=== PATIENT | male | born 1950 | race African-American/Black ===

== ENCOUNTER → 2018-06-30 | Outpatient (REF) | payer MEDICARE, MEDICAID ==
[~2018-06-30] MED LIST: FLEXERIL PO; NAPROSYN500 MG PO; PRILOSEC40 MG PO; ZOFRAN ODT4 MG SL; ZOVIRAX400 MG PO
[2018-06-30 07:54] LABS: URINE BILIRUBIN - DIPSTICK NEGATIVE (NEGATIVE); URINE BLOOD DIPSTICK SMALL (NEGATIVE); URINE CLARITY CLEAR; URINE COLOR YELLOW; URINE GLUCOSE - DIPSTICK NEGATIVE (NEGATIVE); URINE KETONE NEGATIVE (NEGATIVE); URINE LEUK ESTERASE NEGATIVE (NEGATIVE); URINE NITRITE - DIPSTICK NEGATIVE (Negative); URINE PROTEIN - DIPSTICK NEGATIVE (NEG-TRACE); URINE SPECIFIC GRAVITY 1.015
[2018-06-30 07:57] LABS: HEMATOCRIT 35.7 % (39.0-50.0); HEMOGLOBIN 12.1 g/dl (14.0-18.0); MEAN CELL VOLUME 91.3 fL CALC (80.0-100.0); MEAN CORPUSCULAR HGB 30.9 pG CALC (26.0-32.0); MEAN CORPUSCULAR HGB CONC 33.9 g/L CALC (32.0-36.0); RED BLOOD COUNT 3.91 mill/uL (4.70-6.10)
[2018-06-30 08:11] LABS: URINE RBC 0-2 RBC/hpf (0-5); URINE WBC 0-2 WBC/hpf (0-5)
[2018-06-30 08:26] LABS: ALBUMIN 3.9 g/dL (3.2-5.0); ALKALINE PHOSPHATASE 147 u/l (38-126); ANION GAP 13 (6-22 (CALC)); BILIRUBIN, TOTAL 0.4 mg/dL (0.0-1.4); BUN 14 mg/dL (8-23); BUN/CREATININE RATIO 15 (12-20 (CALC)); CALCULATED LDLCHOLESTEROL 62 mg/dL (62-129 (CALC)); CARBON DIOXIDE 27 mmol/l (22-30); CHLORIDE 107 mmol/l (95-108); CHOLESTEROL HDL RATIO 2.2 (<4.4 (CALC)); GFR > 60 ML/MIN (>=60 (CALC)); GFR FOR AFR.AMER. > 60 ML/MIN (>=60 (CALC)); HDL CHOLESTEROL 66 mg/dL (>=40); POTASSIUM 3.7 mmol/l (3.5-5.1); SGOT/AST 38 u/l (19-48); SODIUM 144 mmol/l (137-146); TOTAL CHOLESTEROL 146 mg/dl (0-199); TOTAL PROTEIN 6.9 g/dL (6.3-8.2); TOTAL TRIGLYCERIDES 91 mg/dl (30-149); VLDL CHOLESTROL 18 mg/dl (4-45 (CALC))
[2018-06-30 08:58] LABS: TSH, 3RD GENERATION 4.33 uIU/mL (0.47 - 4.68)
== END | disposition home or self-care (01) ==
LOC: LAB 07:10
PROVIDERS: ATTEND Nurse Practitioner Adult Health
DX: C18.9 Malignant neoplasm of colon, unspecified (principal); I10 Essential (primary) hypertension; Z12.5 Encounter for screening for malignant neoplasm of prostate

== ENCOUNTER 2018-09-22 03:55 | Emergency (ER) | payer MEDICARE, MEDICAID ==
[~2018-09-22] VITALS: Ht 188 cm; Wt 94.5 kg
[2018-09-22] MEDS ORDERED: XARELTO10 MG PO (04:06)
[2018-09-22] MEDS ORDERED: PROTONIX40 MG PO (04:07)
[2018-09-22] MEDS ORDERED: LOSARTAN POT100 MG PO (04:07)
[2018-09-22] MEDS ORDERED: AMLODIPINE5 MG PO (04:07)
[2018-09-22] MEDS ORDERED: ASPIRIN CHEWABL81 MG PO (04:08)
[2018-09-22 05:00] LABS: HEMATOCRIT 32.5 % (39.0-50.0); HEMOGLOBIN 10.9 g/dl (14.0-18.0); MEAN CELL VOLUME 81.7 fL CALC (80.0-100.0); MEAN CORPUSCULAR HGB 27.4 pG CALC (26.0-32.0); MEAN CORPUSCULAR HGB CONC 33.5 g/L CALC (32.0-36.0); NEUT# 12.06 thou/uL (1.82-7.42); RED BLOOD COUNT 3.98 mill/uL (4.70-6.10); RED CELL DISTRI WIDTH 14.6 % (11.5-15.5)
[2018-09-22 05:13] LABS: ALBUMIN 3.7 g/dL (3.2-5.0); ALKALINE PHOSPHATASE 309 u/l (38-126); AMYLASE 70 u/l (30-110); ANION GAP 18 (6-22 (CALC)); BILIRUBIN, TOTAL 0.7 mg/dL (0.0-1.4); BUN 12 mg/dL (8-23); BUN/CREATININE RATIO 12 (12-20 (CALC)); CARBON DIOXIDE 24 mmol/l (22-30); CHLORIDE 100 mmol/l (95-108); GFR > 60 ML/MIN (>=60 (CALC)); GFR FOR AFR.AMER. > 60 ML/MIN (>=60 (CALC)); LIPASE 53 u/l (23-300); POTASSIUM 3.3 mmol/l (3.5-5.1); SGOT/AST 60 u/l (19-48); SODIUM 139 mmol/l (137-146); TOTAL PROTEIN 7.5 g/dL (6.3-8.2)
[2018-09-22 05:17] LABS: URINE BILIRUBIN - DIPSTICK NEGATIVE (NEGATIVE); URINE BLOOD DIPSTICK TRACE-INTACT (NEGATIVE); URINE COLOR YELLOW; URINE GLUCOSE - DIPSTICK NEGATIVE (NEGATIVE); URINE KETONE 15 mg/dL (NEGATIVE); URINE LEUK ESTERASE NEGATIVE (NEGATIVE); URINE NITRITE - DIPSTICK NEGATIVE (Negative); URINE PH 5.5 (4.5-8.0); URINE PROTEIN - DIPSTICK NEGATIVE (NEG-TRACE); URINE SPECIFIC GRAVITY 1.025
[2018-09-22] MEDS ORDERED: ZOFRAN ODT4 MG PO (08:19)
[2018-09-22] MEDS ORDERED: BENTYL10 MG PO (08:19)
[2018-09-22 08:27] VITALS: BP 119/80
== END 2018-09-22 08:33 | disposition home or self-care (01) ==
LOC: ED 03:55
PROVIDERS: Emergency Medicine
DX: R10.13 Epigastric pain (principal); R10.33 Periumbilical pain; C18.9 Malignant neoplasm of colon, unspecified; C78.7 Secondary malignant neoplasm of liver and intrahepatic bile duct; C78.00 Secondary malignant neoplasm of unspecified lung; I10 Essential (primary) hypertension; Z79.899 Other long term (current) drug therapy

== ENCOUNTER 2018-11-01 05:03 | Emergency (ER) | payer MEDICARE, MEDICAID ==
[~2018-11-01] VITALS: Ht 188 cm; Wt 94.6 kg
[~2018-11-01 05:03] MED LIST changes: +AMLODIPINE5 MG PO; +ASPIRIN CHEWABL81 MG PO; +BENTYL10 MG PO; +LOSARTAN POT100 MG PO; +PROTONIX40 MG PO; +XARELTO10 MG PO; +ZOFRAN ODT4 MG PO
[2018-11-01] MEDS ORDERED: PEPCID20 MG PO (05:40)
[2018-11-01] MEDS ORDERED: TAMSULOSIN HCL0.4 MG PO (05:41)
[2018-11-01] MEDS ORDERED: DICYCLOMINE10 MG PO (05:41)
[2018-11-01] MEDS ORDERED: CAPECITABINE500 MG PO (05:43)
[2018-11-01 06:12] LABS: HEMATOCRIT 26.8 % (39.0-50.0); IMMATURE GRANULOCYTES 0.7 % (0.0-5.0); MEAN CELL VOLUME 81.2 fL CALC (80.0-100.0); MEAN CORPUSCULAR HGB 27.3 pG CALC (26.0-32.0); MEAN CORPUSCULAR HGB CONC 33.6 g/L CALC (32.0-36.0); NEUT# 10.57 thou/uL (1.82-7.42); RED BLOOD COUNT 3.3 mill/uL (4.70-6.10); RED CELL DISTRI WIDTH 20.6 % (11.5-15.5)
[2018-11-01 06:36] LABS: ALBUMIN 3.3 g/dL (3.2-5.0); ALKALINE PHOSPHATASE 234 u/l (38-126); AMYLASE 36 u/l (30-110); ANION GAP 14 (6-22 (CALC)); BILIRUBIN, TOTAL 1.8 mg/dL (0.0-1.4); BUN 11 mg/dL (8-23); BUN/CREATININE RATIO 13 (12-20 (CALC)); CARBON DIOXIDE 27 mmol/l (22-30); CHLORIDE 97 mmol/l (95-108); CREATININE 0.9 mg/dL (0.7-1.3); GFR > 60 ML/MIN (>=60 (CALC)); GFR FOR AFR.AMER. > 60 ML/MIN (>=60 (CALC)); LIPASE 41 u/l (23-300); POTASSIUM 3.9 mmol/l (3.5-5.1); SGOT/AST 59 u/l (19-48); SODIUM 133 mmol/l (137-146); TOTAL PROTEIN 6.7 g/dL (6.3-8.2)
[2018-11-01 08:02] LABS: URINE BILIRUBIN - DIPSTICK NEGATIVE (NEGATIVE); URINE BLOOD DIPSTICK TRACE-LYSED (NEGATIVE); URINE COLOR YELLOW; URINE GLUCOSE - DIPSTICK NEGATIVE (NEGATIVE); URINE KETONE NEGATIVE (NEGATIVE); URINE LEUK ESTERASE NEGATIVE (NEGATIVE); URINE NITRITE - DIPSTICK NEGATIVE (Negative); URINE PROTEIN - DIPSTICK NEGATIVE (NEG-TRACE); URINE SPECIFIC GRAVITY <=1.005; URINE UROBILINOGEN - DIPSTICK 0.2 E.U./dL (0.2)
[2018-11-01] MEDS ORDERED: DILAUDID2 MG PO (08:18)
[2018-11-01] MEDS ORDERED: ZITHROMAX250 MG PO (08:18)
[2018-11-01 08:22] VITALS: BP 123/63
== END 2018-11-01 08:32 | disposition home or self-care (01) ==
LOC: ED 05:03
PROVIDERS: Family Medicine
DX: R10.11 Right upper quadrant pain (principal); R10.12 Left upper quadrant pain; C18.9 Malignant neoplasm of colon, unspecified; C78.7 Secondary malignant neoplasm of liver and intrahepatic bile duct; C79.70 Secondary malignant neoplasm of unspecified adrenal gland; I10 Essential (primary) hypertension
CPT/HCPCS: Q9967

== ENCOUNTER → 2018-11-15 | Outpatient (REF) | payer MEDICARE, MEDICAID ==
[~2018-11-15] MED LIST changes: +CAPECITABINE500 MG PO; +DICYCLOMINE10 MG PO; +DILAUDID2 MG PO; +ONDANSETRON4 MG PO; +PEPCID20 MG PO; +TAMSULOSIN HCL0.4 MG PO; +ZITHROMAX250 MG PO; +ZOFRAN8 MG PO
== END | disposition home or self-care (01) ==
LOC: ULTRASND 18:37 → DI 19:00
PROVIDERS: ATTEND Nurse Practitioner Family
DX: R06.09 Other forms of dyspnea (principal)

== ENCOUNTER 2018-11-22 07:46 | Emergency (ER) | payer MEDICARE, MEDICAID ==
[~2018-11-22] VITALS: Ht 188 cm; Wt 79.0 kg
[~2018-11-22 07:46] MED LIST changes: -ONDANSETRON4 MG PO; -ZOFRAN8 MG PO
[2018-11-22 08:36] LABS: HEMATOCRIT 29.6 % (39.0-50.0); IMMATURE GRANULOCYTES 0.7 % (0.0-5.0); MEAN CELL VOLUME 85.1 fL CALC (80.0-100.0); MEAN CORPUSCULAR HGB 28.7 pG CALC (26.0-32.0); MEAN CORPUSCULAR HGB CONC 33.8 g/L CALC (32.0-36.0); NEUT# 10.56 thou/uL (1.82-7.42); RED BLOOD COUNT 3.48 mill/uL (4.70-6.10); RED CELL DISTRI WIDTH 25.4 % (11.5-15.5)
[2018-11-22 08:45] LABS: ALBUMIN 3.7 g/dL (3.2-5.0); ALKALINE PHOSPHATASE 204 u/l (38-126); ANION GAP 16 (6-22 (CALC)); BUN 9 mg/dL (8-23); BUN/CREATININE RATIO 13 (12-20 (CALC)); CARBON DIOXIDE 24 mmol/l (22-30); CHLORIDE 100 mmol/l (95-108); CREATININE 0.7 mg/dL (0.7-1.3); GFR > 60 ML/MIN (>=60 (CALC)); GFR FOR AFR.AMER. > 60 ML/MIN (>=60 (CALC)); LIPASE 66 u/l (23-300); POTASSIUM 3.8 mmol/l (3.5-5.1); SGOT/AST 38 u/l (19-48); SODIUM 136 mmol/l (137-146); TOTAL PROTEIN 7.3 g/dL (6.3-8.2)
[2018-11-22] MEDS ORDERED: ZOFRAN8 MG PO (10:32)
[2018-11-22] MEDS ORDERED: DILAUDID2 MG PO (10:32)
[2018-11-22 10:42] VITALS: BP 111/66
== END 2018-11-22 10:46 | disposition home or self-care (01) ==
LOC: ED 07:46
PROVIDERS: Emergency Medicine
DX: R10.13 Epigastric pain (principal); R10.816 Epigastric abdominal tenderness; R11.10 Vomiting, unspecified; R06.02 Shortness of breath

== ENCOUNTER 2018-12-16 08:44 | Emergency (ER) | payer MEDICARE, MEDICAID ==
[~2018-12-16] VITALS: Ht 188 cm; Wt 80.0 kg
[~2018-12-16 08:44] MED LIST changes: +ZOFRAN8 MG PO
[2018-12-16 09:43] LABS: HEMATOCRIT 26.1 % (39.0-50.0); HEMOGLOBIN 8.8 g/dl (14.0-18.0); IMMATURE GRANULOCYTES 0.4 % (0.0-5.0); MEAN CELL VOLUME 87.6 fL CALC (80.0-100.0); MEAN CORPUSCULAR HGB 29.5 pG CALC (26.0-32.0); MEAN CORPUSCULAR HGB CONC 33.7 g/L CALC (32.0-36.0); NEUT# 9.54 thou/uL (1.82-7.42); RED BLOOD COUNT 2.98 mill/uL (4.70-6.10); RED CELL DISTRI WIDTH 24.6 % (11.5-15.5)
[2018-12-16 10:06] LABS: ALBUMIN 3.2 g/dL (3.2-5.0); ALKALINE PHOSPHATASE 168 u/l (38-126); ANION GAP 14 (6-22 (CALC)); BUN 7 mg/dL (8-23); BUN/CREATININE RATIO 10 (12-20 (CALC)); CARBON DIOXIDE 23 mmol/l (22-30); CHLORIDE 100 mmol/l (95-108); CREATININE 0.7 mg/dL (0.7-1.3); GFR > 60 ML/MIN (>=60 (CALC)); GFR FOR AFR.AMER. > 60 ML/MIN (>=60 (CALC)); POTASSIUM 3.9 mmol/l (3.5-5.1); SGOT/AST 35 u/l (19-48); SODIUM 134 mmol/l (137-146); TOTAL PROTEIN 6.3 g/dL (6.3-8.2)
[2018-12-16] MEDS ORDERED: ONDANSETRON4 MG PO (10:46)
[2018-12-16] MEDS ORDERED: DILAUDID2 MG PO (10:46)
[2018-12-16] MEDS ORDERED: BENTYL10 MG PO (10:47)
[2018-12-16 11:12] VITALS: BP 167/79
== END 2018-12-16 11:31 | disposition home or self-care (01) ==
LOC: ED 08:44
PROVIDERS: Emergency Medicine
DX: T45.1X5A Adverse effect of antineoplastic and immunosuppressive drugs, initial encounter (principal); K56.7 Ileus, unspecified; R10.9 Unspecified abdominal pain; C18.9 Malignant neoplasm of colon, unspecified; C78.7 Secondary malignant neoplasm of liver and intrahepatic bile duct; C78.00 Secondary malignant neoplasm of unspecified lung; R11.0 Nausea; R53.81 Other malaise

== ENCOUNTER 2019-01-20 12:21 | Observation (INO) | payer MEDICARE, MEDICAID ==
[~2019-01-20] VITALS: Ht 188 cm; Wt 71.0 kg
[~2019-01-20 12:21] MED LIST changes: +ONDANSETRON4 MG PO
--- NOTE | 2019-01-20 13:43 | NUR ---
RIGHT SUBCLAVIAN PORT ACCESSED, PT PROVIDED MEDS ORDERED.
[2019-01-20 13:44] LABS: HEMATOCRIT 31.3 % (39.0-50.0); HEMOGLOBIN 10.2 g/dl (14.0-18.0); IMMATURE GRANULOCYTES 0.5 % (0.0-5.0); MEAN CORPUSCULAR HGB 26.8 pG CALC (26.0-32.0); MEAN CORPUSCULAR HGB CONC 32.6 g/L CALC (32.0-36.0); NEUT# 6.7 thou/uL (1.82-7.42); RED BLOOD COUNT 3.81 mill/uL (4.70-6.10); RED CELL DISTRI WIDTH 17.7 % (11.5-15.5)
[2019-01-20] MEDS ORDERED: TAMSULOSIN HCL0.4 MG PO (13:50)
[2019-01-20] MEDS ORDERED: LOSARTAN POT50 MG PO (13:50)
[2019-01-20] MEDS ORDERED: XARELTO10 MG PO (13:51)
[2019-01-20] MEDS ORDERED: FAMOTIDINE20 M1 PO (13:51)
[2019-01-20] MEDS ORDERED: REGORAFENIB (13:52)
[2019-01-20 13:59] LABS: MEAN CELL VOLUME 82.2 fL CALC (80.0-100.0)
[2019-01-20 14:05] LABS: ALBUMIN 3.3 g/dL (3.2-5.0); ANION GAP 13 (6-22 (CALC)); BILIRUBIN, TOTAL 1.1 mg/dL (0.0-1.4); BUN 5 mg/dL (8-23); BUN/CREATININE RATIO 11 (12-20 (CALC)); CARBON DIOXIDE 23 mmol/l (22-30); CHLORIDE 104 mmol/l (95-108); CREATININE 0.5 mg/dL (0.7-1.3); GFR > 60 ML/MIN (>=60 (CALC)); GFR FOR AFR.AMER. > 60 ML/MIN (>=60 (CALC)); LIPASE 99 u/l (23-300); POTASSIUM 3.3 mmol/l (3.5-5.1); SGOT/AST 57 u/l (19-48); SODIUM 136 mmol/l (137-146); TOTAL PROTEIN 7.1 g/dL (6.3-8.2)
[2019-01-20 14:17] LABS: ALKALINE PHOSPHATASE 542 u/l (38-126)
--- NOTE | 2019-01-20 14:58 | NUR ---
PT ARRIVED FROM ER VIA STRETCHER AT [id number], WITH STAFF AND FAMILY ACCOMPANIED. IV SITE OBTAINED IN ER.,
--- NOTE | 2019-01-20 14:58 | NUR ---
PT ARRIVED FROM ER VIA STRETCHER ACCOMPNIED BY STAFF. IV SITE IS FREE FROM REDNESS OR EDEMA.
[2019-01-20 15:10] VITALS: BP 134/82
--- NOTE | 2019-01-20 15:10 | NUR ---
PT ASSESSMENT IS COMPLETED: FAMILY IN THE ROOM IV SITE IS FREE FROM REDNESS OR EDEMA. HR IS REG,PULSES ARE STRONG X4, ABD IS SOFT WITH ACTIVE BS. BREATH SOUNDS ARE CLEAR BILATERALLY, NO DISTRESS NOTED. AMBULATED TO THE BED WITHOUT ANY ISSUES.
--- NOTE | 2019-01-20 18:18 | NUR ---
PT IS RELAXING IN BED WITH NO DISTRESS NOTED. IV SITE IS FREE FROM REDNESS OR EDEMA. CONTINUE TO OBSERVE AND MONITOR.
[2019-01-20 19:31] VITALS: BP 141/86
--- NOTE | 2019-01-20 20:20 | NUR ---
PT MEDICATED ORDERS PROVIDE FOR PAIN. PT ASSESSED, LUNG SOUNDS ARE CLEAR, HYPERACTIVE BOWEL SOUNDS W/TENDERNESS TO ALL QUAD'S, BUT REPORTED WORSE ON RIGHT QUADRANTS/PT REPORTS LOOSE STOOL 2X TODAY, REPORTS NOT HAVING APPETITE LATELY, BUT THAT HE DID EAT DINNER THIS EVENING. PT ENCOURAGED TO CALL IF THERE WAS ANYTHING THAT HE FELT HE COULD EAT THAT WE COULD PROVIDE, DENIES ANYTHING AT THIS TIME. SAFETY MEASURES DISCUSSED AND PT ASKED TO CALL FOR ASSISTANCE WHEN GETTING UP. CALL LIGHT AT BEDSIDE.
[2019-01-20 23:32] LABS: URINE BILIRUBIN - DIPSTICK NEGATIVE (NEGATIVE); URINE BLOOD DIPSTICK NEGATIVE (NEGATIVE); URINE COLOR YELLOW; URINE GLUCOSE - DIPSTICK NEGATIVE (NEGATIVE); URINE KETONE NEGATIVE (NEGATIVE); URINE LEUK ESTERASE NEGATIVE (NEGATIVE); URINE NITRITE - DIPSTICK NEGATIVE (Negative); URINE PH 5.5 (4.5-8.0); URINE PROTEIN - DIPSTICK NEGATIVE (NEG-TRACE); URINE UROBILINOGEN - DIPSTICK 0.2 E.U./dL (0.2)
--- NOTE | 2019-01-21 00:46 | NUR ---
PT AWOKE TO OUR ENTERING ROOM. DENIES ANY NEEDS AT THIS TIME. NO S/O DISTRESS NOTED. LIGHTS AND TV ARE OFF, CALL LIGHT AT BEDSIDE.
--- NOTE | 2019-01-21 03:33 | NUR ---
PT APPEARS TO BE SLEEPING, AWOKE TO MY ENTERING ROOM, DENIES ANY NEEDS, CALL LIGHT AT BEDSIDE.
[2019-01-21 04:05] VITALS: BP 117/76
[2019-01-21 05:34] LABS: HEMATOCRIT 29.3 % (39.0-50.0); HEMOGLOBIN 9.6 g/dl (14.0-18.0); IMMATURE GRANULOCYTES 0.4 % (0.0-5.0); MEAN CELL VOLUME 81.4 fL CALC (80.0-100.0); MEAN CORPUSCULAR HGB 26.7 pG CALC (26.0-32.0); MEAN CORPUSCULAR HGB CONC 32.8 g/L CALC (32.0-36.0); NEUT# 5.38 thou/uL (1.82-7.42); RED BLOOD COUNT 3.6 mill/uL (4.70-6.10); RED CELL DISTRI WIDTH 17.4 % (11.5-15.5)
[2019-01-21 06:02] LABS: ALBUMIN 2.7 g/dL (3.2-5.0); ALKALINE PHOSPHATASE 446 u/l (38-126); AMYLASE 55 u/l (30-110); ANION GAP 10 (6-22 (CALC)); BUN 5 mg/dL (8-23); BUN/CREATININE RATIO 12 (12-20 (CALC)); CARBON DIOXIDE 26 mmol/l (22-30); CHLORIDE 104 mmol/l (95-108); CREATININE 0.5 mg/dL (0.7-1.3); GFR > 60 ML/MIN (>=60 (CALC)); GFR FOR AFR.AMER. > 60 ML/MIN (>=60 (CALC)); LIPASE 87 u/l (23-300); MAGNESIUM 1.2 mg/dL (1.6-2.3); POTASSIUM 3.4 mmol/l (3.5-5.1); SGOT/AST 51 u/l (19-48); SODIUM 137 mmol/l (137-146); TOTAL PROTEIN 6.2 g/dL (6.3-8.2)
--- NOTE | 2019-01-21 07:45 | NUR ---
PT RESTING IN BED. A&OX3 ABLE TO MAKE NEEDS KNOWN.RESPIRATIONS EVEN/UNLABORED.ASSESSMENT DONE, SEE INTERVENTIONS. AT BEDSIDE. CALL LIGHT IN REACH. WILL MONITOR.
--- NOTE | 2019-01-21 08:00 | NUR ---
DIETARY ON UNIT
--- NOTE | 2019-01-21 10:15 | NUR ---
MEDICATED FOR PAIN ORDERED, PER PT REQUEST. FAMILY AND REMAIN AT BEDSIDE. WILL MONITOR.
--- NOTE | 2019-01-21 12:16 | NUR ---
ALCOHOLIC COUNSELOR CALLED HOSPICE SPOKE TO NURSE AT [phone] IN HOSPICE NAMED [place] GAVE PT NAME, , ROOM NUMBER. WAS TOLD NO ONE INFORMED THEM OF CONSULTATION PLACED YESTERDAY. [place] GAVE FAX NUMBER FOR CONSULTATION ITS [phone]. 122: CALLED SPOKE TO [place] AGAIN TO MAKE SURE IT WAS FAXED [place] INFORMED ALCOHOLIC COUNSELOR THAT SHE DID RECEIVE THE FAX.
--- NOTE | 2019-01-21 14:20 | NUR ---
SHU AT BEDSIDE FOR CONSULTATION, PT STATED HE WAS HAVING A CAT SCAN THE AND APPT WITH ONCOLOGIST ON . HE DOES NOT WANT TO MNAKE ANY DECISIONS REGARDING CARE UNTIL THOSE THINGS ARE COMPLETED. [place] LEFT FAMILY WITH PACKET TO LOOK OVER AND WITH CONTACT INFORMATION WHEN THEY ARE READY. REMAINS AT BEDSIDE. CALL LIGHT IN REACH, WILL MONITOR.
[2019-01-21 15:45] VITALS: BP 127/80
--- NOTE | 2019-01-21 17:45 | NUR ---
PT MEDICATED FOR PAIN ORDERED PER PT REQUEST. PT ALSO GIVEN CRANBERRY JUICE. WILL MONITOR. FAMILY REMAINS AT BESIDE.
[2019-01-21 18:53] VITALS: BP 135/80
--- NOTE | 2019-01-21 20:05 | NUR ---
PT IS IN LOW FOWLERS POSITION WATCHING TV, NO S/O DISTRESS NOTED AT THIS TIME. DENIES ANY NEEDS, CALL LIGHT AT BEDSIDE AND PT ENCOURAGED TO CALL IF ANY NEEDS ARISE.
--- NOTE | 2019-01-22 00:06 | NUR ---
PT MEDICATED ORDERS PROVIDE FOR PAIN 5-6/10 IN ABD AREA. PT IS ASKING FOR SOMETHING TO HELP HIM HAVE A BM, UPON DISCUSSION PT REPORTS HAVING A MODERATE SIZE HARD BM THIS AM, BUT FEELS LIKE HE NEEDS TO HAVA ANOTHER BM. PT PROVIDED WARM PRUNE JUICE. DENIES ANY OTHER NEEDS AT THIS TIME. CALL LIGHT AT BEDSIDE AND PT ENCOURAGED TO CALL IF ANY NEEDS ARISE.
[2019-01-22 04:00] VITALS: BP 135/80
--- NOTE | 2019-01-22 05:40 | NUR ---
ATTEMPTS WERE MADE TO DRAW LABS FROM PORT, WAS NOT ABLE. LAB IN W/PT AT THIS TIME.
[2019-01-22 06:03] LABS: HEMOGLOBIN 10.1 g/dl (14.0-18.0); IMMATURE GRANULOCYTES 0.4 % (0.0-5.0); MEAN CELL VOLUME 82.7 fL CALC (80.0-100.0); MEAN CORPUSCULAR HGB 26.9 pG CALC (26.0-32.0); MEAN CORPUSCULAR HGB CONC 32.6 g/L CALC (32.0-36.0); RED BLOOD COUNT 3.75 mill/uL (4.70-6.10); RED CELL DISTRI WIDTH 17.5 % (11.5-15.5)
[2019-01-22 06:30] LABS: ALBUMIN 2.9 g/dL (3.2-5.0); ALKALINE PHOSPHATASE 542 u/l (38-126); ANION GAP 11 (6-22 (CALC)); BILIRUBIN, TOTAL 1.1 mg/dL (0.0-1.4); BUN 4 mg/dL (8-23); BUN/CREATININE RATIO 9 (12-20 (CALC)); CARBON DIOXIDE 25 mmol/l (22-30); CHLORIDE 103 mmol/l (95-108); CREATININE 0.5 mg/dL (0.7-1.3); GFR > 60 ML/MIN (>=60 (CALC)); GFR FOR AFR.AMER. > 60 ML/MIN (>=60 (CALC)); MAGNESIUM 1.5 mg/dL (1.6-2.3); POTASSIUM 3.4 mmol/l (3.5-5.1); SGOT/AST 57 u/l (19-48); SODIUM 136 mmol/l (137-146); TOTAL PROTEIN 6.5 g/dL (6.3-8.2)
[2019-01-22 08:02] VITALS: BP 141/81
--- NOTE | 2019-01-22 08:07 | NUR ---
ASSESSMENT DONE. PT IS A&O X3. MEDICATED PT WITH DILAUDID FOR PAIN IN ABD 03/07 SEE EMAR. RESPS EVEN AND UNLABORED. RU CHEST PORT APPEARS HEALLTHY. UNABLE TO GET BLOOD RETURN BUT FLUSHES WELL. PT DENIES ANY OTHER NEEDS AT THIS TIME. CALL LIGHT IN REACH.
--- NOTE | 2019-01-22 12:00 | NUR ---
STAND BY ASSIST PT TO THE BATHROOM. PT DENIES ANY OTHER NEEDS AT THIS TIME . CALL LIGHT IN REACH.
--- NOTE | 2019-01-22 15:34 | NUR ---
PT RESTING IN BED. PT STATED PAIN MEDICATION HELPED PAIN IS 10/07. PT DENIES ANY NEEDS AT THIS TIME. CALL LIGHT IN REACH.
[2019-01-22 16:00] VITALS: BP 122/75
[2019-01-22 19:00] VITALS: BP 135/77
--- NOTE | 2019-01-22 19:30 | NUR ---
PT IN BED W/LIGHTS AND TV ON. VISITOR JUST LEFT. BEDSIDE REPORT HAS BEEN RECEIVED FROM DAY NURSE. PT ASSESSED AT THIS TIME. LUNG SOUNDS ARE CLEAR, ABD FIRM TENDER THROUGHOUT W/ACTIVE BS. PT REPORTS 2X FIRM STOOL TODAY. NO NOTED EDEMA, NEURO'S INTACT. PT DENIES ANY NEEDS AT THIS TIME. CALL LIGHT AT SIDE.
--- NOTE | 2019-01-22 21:50 | NUR ---
PT MEDICATED FOR PAIN REPORTED IN ABDOMINAL REGION 03/07. PT DENIES ANY OTHER NEEDS, REPORTS HE IS HOPING TO GO TO SLEEP. NO S/O DISTRES. CALL LIGHT AT BEDSIDE AND PT ENCOURAGED TO CALL FOR ASSISTANCE.
--- NOTE | 2019-01-23 00:15 | NUR ---
PT AWAKE WATCHING A BALLGAME ON TV. DENIES ANY NEEDS OTHER THAN COFFEE/PROVIDED. NO S/O DISTRESS.
[2019-01-23 04:04] VITALS: BP 125/68
--- NOTE | 2019-01-23 05:03 | NUR ---
PT MEDICATED FOR PAIN 03/07 IN ABD REGION. ICE PROVIDED/REQUEST. DENIES ANY OTHER NEEDS.
[2019-01-23 07:59] VITALS: BP 126/75
--- NOTE | 2019-01-23 08:15 | NUR ---
ASSESSMENT DONE. PT DENIES PAIN AT THIS TIME. PT IS A&O X3. RESPS EVEN AND UNLABORED. PT DENIES NEEDS AT THIS TIME. CALL LIGHT IN REACH.
[2019-01-23 10:58] LABS: HEMATOCRIT 29.3 % (39.0-50.0); HEMOGLOBIN 9.3 g/dl (14.0-18.0); IMMATURE GRANULOCYTES 0.5 % (0.0-5.0); MEAN CELL VOLUME 82.1 fL CALC (80.0-100.0); MEAN CORPUSCULAR HGB 26.1 pG CALC (26.0-32.0); MEAN CORPUSCULAR HGB CONC 31.7 g/L CALC (32.0-36.0); NEUT# 5.62 thou/uL (1.82-7.42); RED BLOOD COUNT 3.57 mill/uL (4.70-6.10); RED CELL DISTRI WIDTH 17.2 % (11.5-15.5)
[2019-01-23 11:09] LABS: ANION GAP 11 (6-22 (CALC)); BUN 4 mg/dL (8-23); BUN/CREATININE RATIO 8 (12-20 (CALC)); CARBON DIOXIDE 25 mmol/l (22-30); CHLORIDE 104 mmol/l (95-108); CREATININE 0.6 mg/dL (0.7-1.3); GFR > 60 ML/MIN (>=60 (CALC)); GFR FOR AFR.AMER. > 60 ML/MIN (>=60 (CALC)); MAGNESIUM 1.7 mg/dL (1.6-2.3); POTASSIUM 3.2 mmol/l (3.5-5.1); SODIUM 137 mmol/l (137-146)
[2019-01-23 11:35] VITALS: BP 100/50
--- NOTE | 2019-01-23 11:54 | NUR ---
PT IS RESTING IN BED STATED THE PAIN MEDICATION HELPED. PT DENIES ANY NEEDS AT THIS TIME. CALL LIGHT IN REACH.
[2019-01-23 16:00] VITALS: BP 159/83
--- NOTE | 2019-01-23 16:20 | NUR ---
PT RESTING BED. PT STATED HE HAD A BM. PT DENIES PAIN AT THIS TIME. CALL LIGHT IN REACH.
[2019-01-23 20:18] VITALS: BP 127/74
--- NOTE | 2019-01-23 20:43 | NUR ---
PT MEDICATED ORDERS PROVIDE. PT DENIES ANY SNACK OR NEEDS AT THIS TIME. PT ASSESSED, LUNG SOUNDS ARE CLEAR, ABD FIRM TENDER THROUGHOUT W/ACTIVE BOWEL SOUNDS. DENIES PAIN/N/V. ASSISTED IN REPOSITIONING AND ENCOURAGED TO CALL IF ANY NEEDS ARISE. CALL LIGHT AT BEDSIDE.
--- NOTE | 2019-01-24 02:05 | NUR ---
PT MEDICATED FOR PAIN BY FELLOW NURSE ON THE FLOOR.
--- NOTE | 2019-01-24 03:59 | NUR ---
PT SLEEPING AT THIS TIME. CALL LIGHT AT SIDE, NO S/O DISTRESS.
[2019-01-24 04:37] VITALS: BP 128/73
--- NOTE | 2019-01-24 07:10 | NUR ---
REPORT RECEIVED FROM FRAN MUNOZ;PT APPEARS TO BE SLEEPING IN SUPINE POSITION;RESPIRATIONS APPEAR EVEN AND UNLABORED ON RA;NO S/S OF DISTRESS NOTED;ALL SAFETY PRECAUTIONS IN PLACE WITH BED IN THE LOWEST POSITION AND CALL LIGHT IN REACH;WILL CONTINUE TO MONITOR
[2019-01-24 08:49] VITALS: BP 125/81
--- NOTE | 2019-01-24 08:50 | NUR ---
PT RESTING IN SUPINE POSITION,A&OX X3;VS OBTAINED AND ASSESSMENT COMPLETED;PT DENIES ANY CURRENT PAIN OR NEEDS,PAIN SCALE AND REPORTING EDUCATED;RESPIRATIONS EVEN AND UNLABORED ON RA;ABDOMEN DISTENDED/SOFT ON PALPATION AND ACTIVE IN ALL 4 QUADRANTS;STRONG PEDAL PULSES;SKIN INTACT;RIGHT UPPER CHEST PORT FLUSHED AND PATENT,NO BLOOD RETURN NOTED;PT DENIES ANY ADDITIONAL NEEDS AND IS ENCOURAGED TO CALL FOR ASSISTANCE IF NEEDED;CALL LIGHT IN REACH;WILL CONTINUE TO MONITOR
[2019-01-24 08:52] VITALS: BP 125/81
--- NOTE | 2019-01-24 09:59 | NUR ---
AT BEDSIDE DISCUSSING POC INCLUDING D/C HOME WITH PT AND FAMILY,PT VERBALIZES UNDERSTANDING.
[2019-01-24] MEDS ORDERED: MIRTAZAPINE15 MG PO (11:01)
[2019-01-24] MEDS ORDERED: OXYCODONE HCL5 MG PO (11:01)
--- NOTE | 2019-01-24 12:00 | NUR ---
ALL DISCHARGE INSTRUCTIONS PROVIDED AT THIS TIME TO PT AND FAMILY;PRESCRIPTION FOR OXYCODONE GIVEN TO PT AND PT EDUCATED ON USE;PT DENIES ANY ADDITIONAL NEEDS;WHEELCHAIR TO BE PROVIDED FOR DISCHARGE HOME.
--- NOTE | 2019-01-24 12:28 | NUR ---
Discharge instructions given. Patient verbalizes understanding of same. Discharged in stable condition via Wheelchair to Home with family. All belongings sent with pt. Pt transported via wheelchair to er lobby in stable condition accompanied by family.
== END 2019-01-24 12:28 | disposition home or self-care (01) ==
LOC: ED 12:21 → ED-I 13:06 → ED 13:36 → MS2 13:37
PROVIDERS: Family Medicine; Nurse Practitioner Family; ADMIT Internal Medicine Nephrology; ATTEND Internal Medicine Nephrology
DX: G89.3 Neoplasm related pain (acute) (chronic) (principal); C18.9 Malignant neoplasm of colon, unspecified; C78.7 Secondary malignant neoplasm of liver and intrahepatic bile duct; C78.00 Secondary malignant neoplasm of unspecified lung; C77.9 Secondary and unspecified malignant neoplasm of lymph node, unspecified; I10 Essential (primary) hypertension; N40.0 Benign prostatic hyperplasia without lower urinary tract symptoms; E78.5 Hyperlipidemia, unspecified; R63.6 Underweight; Z68.20 Body mass index [BMI] 20.0-20.9, adult; Z86.718 Personal history of other venous thrombosis and embolism; Z79.01 Long term (current) use of anticoagulants; Z79.899 Other long term (current) drug therapy
CPT/HCPCS: J3475

== ENCOUNTER 2019-02-27 14:03 | Inpatient (IN) | payer MEDICARE, MEDICAID ==
[2019-02-27] VITALS (13 sets, daily range): BP systolic 78–109; BP diastolic 57–75
[~2019-02-27] VITALS: Ht 188 cm; Wt 70.0 kg
[~2019-02-27 14:03] MED LIST changes: +FAMOTIDINE20 M1 PO; +LOSARTAN POT50 MG PO; +MIRTAZAPINE15 MG PO; +OXYCODONE HCL5 MG PO; +REGORAFENIB
[2019-02-27 15:10] LABS: HEMATOCRIT 26.9 % (39.0-50.0); HEMOGLOBIN 9.3 g/dl (14.0-18.0); IMMATURE GRANULOCYTES 5.9 % (0.0-5.0); MEAN CELL VOLUME 73.9 fL CALC (80.0-100.0); MEAN CORPUSCULAR HGB 25.5 pG CALC (26.0-32.0); MEAN CORPUSCULAR HGB CONC 34.6 g/L CALC (32.0-36.0); RED BLOOD COUNT 3.64 mill/uL (4.70-6.10); RED CELL DISTRI WIDTH 21.3 % (11.5-15.5)
[2019-02-27 15:19] LABS: MANUAL DIFFERENTIAL YES; PLATELET COUNT 468 thou/uL (130-400)
[2019-02-27 15:43] LABS: ALBUMIN 2.5 g/dL (3.2-5.0); CHLORIDE 98 mmol/l (95-108); LIPASE 50 u/l (23-300); SODIUM 131 mmol/l (137-146); TOTAL PROTEIN 6.5 g/dL (6.3-8.2)
[2019-02-27 15:45] LABS: ALKALINE PHOSPHATASE 242 u/l (38-126); ANION GAP 22 (6-22 (CALC)); BILIRUBIN, TOTAL 17.1 mg/dL (0.0-1.4); BUN 108 mg/dL (8-23); BUN/CREATININE RATIO 23 (12-20 (CALC)); CARBON DIOXIDE 15 mmol/l (22-30); CREATININE 4.7 mg/dL (0.7-1.3); GFR 12 ML/MIN (>=60 (CALC)); GFR FOR AFR.AMER. 15 ML/MIN (>=60 (CALC)); SGOT/AST 100 u/l (19-48)
[2019-02-27 23:54] LABS: URINE BLOOD DIPSTICK NEGATIVE (NEGATIVE); URINE COLOR YELLOW; URINE GLUCOSE - DIPSTICK 100 mg/dL (NEGATIVE); URINE KETONE NEGATIVE (NEGATIVE); URINE LEUK ESTERASE NEGATIVE (NEGATIVE); URINE NITRITE - DIPSTICK NEGATIVE (Negative); URINE PROTEIN - DIPSTICK TRACE mg/dL (NEG-TRACE); URINE SPECIFIC GRAVITY 1.015
[2019-02-28] VITALS (42 sets, daily range): BP systolic 60–111; BP diastolic 43–78
[2019-02-28 00:29] LABS: C. DIFFICILE TOXIN A&B NEGATIVE (NEGATIVE)
[2019-02-28 05:12] LABS: HEMATOCRIT 24.8 % (39.0-50.0); HEMOGLOBIN 8.7 g/dl (14.0-18.0); IMMATURE GRANULOCYTES 5.2 % (0.0-5.0); MEAN CELL VOLUME 72.3 fL CALC (80.0-100.0); MEAN CORPUSCULAR HGB 25.4 pG CALC (26.0-32.0); MEAN CORPUSCULAR HGB CONC 35.1 g/L CALC (32.0-36.0); RED BLOOD COUNT 3.43 mill/uL (4.70-6.10); RED CELL DISTRI WIDTH 20.7 % (11.5-15.5)
[2019-02-28 05:32] LABS: ALBUMIN 2.1 g/dL (3.2-5.0); BILIRUBIN, TOTAL 15.5 mg/dL (0.0-1.4); CREATININE 4.2 mg/dL (0.7-1.3); POTASSIUM 3.9 mmol/l (3.5-5.1); TOTAL PROTEIN 5.7 g/dL (6.3-8.2)
[2019-02-28 06:31] LABS: MANUAL DIFFERENTIAL YES; PLATELET COUNT 402 thou/uL (130-400)
[2019-02-28 06:41] LABS: URINE BILIRUBIN - DIPSTICK MODERATE (NEGATIVE)
[2019-02-28] MEDS ORDERED: ONDANSETRON4 MG PO (13:49)
[2019-02-28] MEDS ORDERED: LOSARTAN POT50 MG PO (13:49)
[2019-02-28] MEDS ORDERED: MIRTAZAPINE15 MG PO (13:50)
[2019-02-28] MEDS ORDERED: CARAFATE1 GM PO (13:50)
[2019-02-28] MEDS ORDERED: XARELTO10 MG PO (13:51)
[2019-02-28] MEDS ORDERED: ASPIRIN 81 LOW81 MG PO (13:51)
[2019-02-28] MEDS ORDERED: DILAUDID2 MG PO (13:53)
[2019-02-28] MEDS ORDERED: STIVARGA PO (13:54)
== END 2019-02-28 18:34 | disposition hospice, inpatient (51) | DRG 871 ==
LOC: ED 14:03 → ED-I 15:44 → ED 15:56 → ICU 15:57
PROVIDERS: Family Medicine; ADMIT Internal Medicine; ATTEND Internal Medicine
DX: A41.9 Sepsis, unspecified organism (principal); K76.7 Hepatorenal syndrome; K72.00 Acute and subacute hepatic failure without coma; R65.21 Severe sepsis with septic shock; C18.9 Malignant neoplasm of colon, unspecified; C78.00 Secondary malignant neoplasm of unspecified lung; C78.7 Secondary malignant neoplasm of liver and intrahepatic bile duct; R18.8 Other ascites; R64 Cachexia; N17.9 Acute kidney failure, unspecified; E87.2 Acidosis; I95.9 Hypotension, unspecified; I10 Essential (primary) hypertension; D63.8 Anemia in other chronic diseases classified elsewhere; D64.81 Anemia due to antineoplastic chemotherapy; E80.6 Other disorders of bilirubin metabolism; Y84.4 Aspiration of fluid as the cause of abnormal reaction of the patient, or of later complication, without mention of misadventure at the time of the procedure; Z68.20 Body mass index [BMI] 20.0-20.9, adult; Z92.21 Personal history of antineoplastic chemotherapy; Z51.5 Encounter for palliative care

== ENCOUNTER 2019-02-28 18:35 | Inpatient (IN) | payer OTHER ==
[~2019-02-28] VITALS: Ht 188 cm; Wt 69.9 kg
[~2019-02-28 18:35] MED LIST changes: +ASPIRIN 81 LOW81 MG PO; +CARAFATE1 GM PO; +STIVARGA PO
[2019-02-28 19:45] VITALS: BP 86/72
--- NOTE | 2019-02-28 19:45 | NUR ---
eyes closed. no apparent distress. cell biology scientist shows sinus rhythm. rt chest port cont. fall precautions cont.
[2019-02-28 22:00] VITALS: BP 75/57
--- NOTE | 2019-02-28 22:00 | NUR ---
eyes closed. no distress.
[2019-03-01] VITALS (10 sets, daily range): BP systolic 66–95; BP diastolic 47–59
--- NOTE | 2019-03-01 00:01 | NUR ---
awake. up to chair per request.
--- NOTE | 2019-03-01 00:25 | NUR ---
assisted back to bed.
--- NOTE | 2019-03-01 00:45 | NUR ---
morphine 2mg iv per request for gen discomfort.
--- NOTE | 2019-03-01 01:15 | NUR ---
cont to c/o pain. ativan 0.5mg po given.
--- NOTE | 2019-03-01 02:20 | NUR ---
c/o indigestion. maalox 30cc po given.
--- NOTE | 2019-03-01 02:45 | NUR ---
morphine 2mg ivp per request for pain.
--- NOTE | 2019-03-01 03:15 | NUR ---
eyes closed. no apparent distress.
--- NOTE | 2019-03-01 06:00 | NUR ---
eyes closed. no apparent distress.
--- NOTE | 2019-03-01 06:55 | NUR ---
PT MEDICATED PER MAR WITH DILAUDID FOR PAIN.
--- NOTE | 2019-03-01 07:30 | NUR ---
PT RESTING IN BED MOANING. PT STATES PAIN IS BETTER. PT IS AlERT AND ORIENTED. SHIFT ASSESSMENT COMPLETED AT THIS TIME. IV PATENT X1. CALL LIGHT IN REACH. WILL CONTINUE TO MONITOR
--- NOTE | 2019-03-01 08:48 | NUR ---
TEMP 95.7 TEMP WARMED IN ROOM AND BLANKETS APPLIED FOR COMFORT. PT RESTING WITH EYES CLOSED.
--- NOTE | 2019-03-01 10:06 | NUR ---
MEDICATED PT WITH MORPHINE PER MAR FOR PAIN.
--- NOTE | 2019-03-01 10:26 | NUR ---
DATA KEYER DIANA AT BEDSIDE.
--- NOTE | 2019-03-01 12:15 | NUR ---
CAROLINEFIROSAT OTHER AT BEDSIDE TRYING TO ENCOURAGE PATIENT TO EAT AND DRINK.
--- NOTE | 2019-03-01 14:18 | NUR ---
MEDICATED PT WITH DILAUDID PER MAR FOR PAIN. WILL CONTINUE TO MONITOR. PT REMIANS ON COMFORT MEASURES.
--- NOTE | 2019-03-01 16:30 | NUR ---
BLADDER SCANNED PATIENT AND SHOWED GREATER THAN 493ML. BRAVO PLACED 16 FR USING STERILE TECHINUQUE WITH IMMEADIATE RETURN OF KRISTINA COLORED URINE BY Navneet SERRANO RN. WILL CONTINUE TO MONITOR.
--- NOTE | 2019-03-01 17:20 | NUR ---
REPORT CALLED TO Alin DE LA CRUZ LPN ON MED SURG
--- NOTE | 2019-03-01 17:35 | NUR ---
PT TRANSFERRED TO ROOM 284 VIA BED. PT TOLERATED TRANSFER WELL.
--- NOTE | 2019-03-01 17:44 | NUR ---
PT ARRIVED FROM ICU VIA BED WITH BRAVO, AND IV SITE INTACT. CONTINEU TO OBSERVE AND MONITOR.
--- NOTE | 2019-03-01 20:06 | NUR ---
PT MEDICATED FOR PAIN 04/06 AND ASSISTED IN DRINKING SMALL AMOUNT OF JUICE FOR COMFORT. PT ASSESSED, ABD DIST/FIRM W/HYPO BOWEL SOUNDS. LUNG SOUNDS ARE CLEAR AT THIS TIME. PT DENIES ANY OTHER NEEDS. REPOSITIONED FOR COMFORT AND BED ALARM ON W/CALL LIGHT NEXT TO HAND.
--- NOTE | 2019-03-01 21:45 | NUR ---
PT STILL REPORTING PAIN LEVEL 9/10, HE IS MOANING AND GROANING. WILL CONTINUE TO MONITOR. PT INSTRUCTED TO CALL NEEDS ARISE. ASSISTED PT IN REPOSITIONING AND DRINKING PO FLUIDS/JUICE.
--- NOTE | 2019-03-02 00:15 | NUR ---
ASSISTED PT TO BSC AND BACK TO BED. PT SAT AWHILE ATTEMPTING BM BUT WAS UNABLE TO HAVE ONE. BEDDING CHANGED, BED ALARM ON.
--- NOTE | 2019-03-02 05:04 | NUR ---
PT MEDICATED FOR NAUSEA AND VOMITING AND PAIN. PT VOMITED 300CC OF DARK COFFE GROUND APPEARANCE EMESIS AND REPORTS PAIN AND IS MOANING. PT ASSISTED DRINKING PO FLUIDS AND DENIED ANY OTHER NEEDS AT THIS TIME. CALL LIGHT AT BEDSIDE.
[2019-03-02 05:06] VITALS: BP 111/67
--- NOTE | 2019-03-02 06:26 | NUR ---
PT PORT FLUSHED PER PROTOCOL/HEPLOCKED. PT REPORTS FEELING BETTER SOMEWHAT FROM MEDICATIONS ADMINISTERED.
[2019-03-02 08:00] VITALS: BP 87/54
--- NOTE | 2019-03-02 08:00 | NUR ---
ASSESSMENT IS COMPLTED: IV SITE IS FREE FROM REDNESS OR EDEMA. HR IS REG,PULSES ARE STRONG X4, ABD IS SOFT WITH ACTIVE BS. BREATH SOUNDS ARE DIMINSHED, BILATERALLY.LABORED BREATHING. BRAVO INTACT DRAINING DARK KRISTINA URINE. CONTINUE TO OSBERVE AND MONITOR.
--- NOTE | 2019-03-02 11:30 | NUR ---
HOSPICE NURSE IN TO VISIT WITH PT.
--- NOTE | 2019-03-02 12:30 | NUR ---
PT IS RELAXING IN BED CONTINUES TO MOAN. HOSPICE NURSE IN HOUSE ATTEMPTING TO GET TRANSPORTATION.
--- NOTE | 2019-03-02 14:38 | NUR ---
[facility] HERE TO TRANSPORT PT TO HOSPICE HOUSE. IV SITE TO REMAIN IN TACT.FAMILY IN THE ROOM. CONTINUE TO OBSERVE AND MONITOR.
--- NOTE | 2019-03-02 14:47 | NUR ---
[facility] TRANSPORTING PT TO HOSPICE HOUSE. VIA STRETCHER FAMILY IS AWARE HAS ALL BELOMGINGS. INCLUDING PHONE . Discharge instructions given. Patient verbalizes understanding of same. Discharged in poor condition via Medical Transport to *Other with *Other. All belongings sent with pt.HOSPICE HOUSE WITH [facility] STAFF
== END 2019-03-02 14:44 | disposition hospice, inpatient (51) | DRG 951 ==
LOC: ICU 18:35 → MS2 03-01 17:40
PROVIDERS: ADMIT Internal Medicine; ATTEND Internal Medicine
DX: Z51.5 Encounter for palliative care (principal); K76.7 Hepatorenal syndrome; K72.00 Acute and subacute hepatic failure without coma; A41.9 Sepsis, unspecified organism; R65.21 Severe sepsis with septic shock; C18.9 Malignant neoplasm of colon, unspecified; C78.7 Secondary malignant neoplasm of liver and intrahepatic bile duct; N17.9 Acute kidney failure, unspecified; E87.2 Acidosis; Z68.1 Body mass index [BMI] 19.9 or less, adult; C78.00 Secondary malignant neoplasm of unspecified lung; R62.7 Adult failure to thrive; M19.90 Unspecified osteoarthritis, unspecified site; I10 Essential (primary) hypertension; D63.8 Anemia in other chronic diseases classified elsewhere; D64.81 Anemia due to antineoplastic chemotherapy; T45.1X5A Adverse effect of antineoplastic and immunosuppressive drugs, initial encounter; Z66 Do not resuscitate; Z92.21 Personal history of antineoplastic chemotherapy
CPT/HCPCS: J2060